=== PATIENT | female | born 1955 | race Caucasian/White ===

== ENCOUNTER 2020-02-03 16:32 | Emergency (ER) | payer BC ==
[2020-02-03 16:59] VITALS: BP 106/48; PULSE 79
[2020-02-03] MEDS ORDERED: Cefdinir 300 MG Cap PO ONE (17:58)
--- NOTE | 2020-02-03 18:04 | EDM.PDOC ---
ED HPI GENERAL MEDICAL PROBLEM - General Chief Complaint: Genitourinary Problem Stated Complaint: URINARY PROBLEMS/SHIVERS Time Seen by Provider: 02/03/20 16:43 Source of Information: Reports: Patient, RN Notes Reviewed History Limitations: Reports: No Limitations - History of Present Illness INITIAL COMMENTS - FREE TEXT/NARRATIVE: Patient is a 64-year-old female who presents to the ED for her urinary issues. Patient notes she has kind of a longstanding issues with her bladder. She was seen in a [place] ER last month, and was found to have blood in her urine, but no infection. She is to see a urologist on February 13 in [place], and also a environmental sampler in [place] on February 20 due to possible bladder or uterine prolapse. She states she has a constant urge to void, but this has worsened today, she states she is going to the bathroom about every 5 minutes. She is not complaining of any real dysuria. She states there is a lot of pressure in her lower abdomen. She also notes that on Tuesday her left foot and leg became more swollen than her right. She states this is not tender, and the swelling seems to have been better today. Her primary care provider is Elva Juarez. Patient notes she is also weaning off of her Cymbalta, and states that she should be done by February 16 for this, she states she used to be on 60 mg, and is down to 6 mg at this time. Patient denies any other sick-like symptoms, fever/chills, cough/shortness of breath, nausea/vomiting/diarrhea. - Related Data Allergies Allergy/AdvReac Type Severity Reaction Status Date / Time pantoprazole sodium Allergy Severe Itching Verified 02/03/20 16:53 [From Protonix] Penicillins Allergy Severe Hives Verified 02/03/20 16:53 [place] Allergy Severe Hives Uncoded 02/03/20 16:53 Home Meds: Home Meds Aspirin [Low Dose Aspirin EC] 81 mg PO DAILY 09/05/13 [History] Metoprolol Tartrate 50 mg PO DAILY 09/05/13 [History] Omeprazole [Prilosec] 40 mg PO BID 12/25/14 [History] DULoxetine [Cymbalta] 30 mg PO DAILY 11/06/18 [History] Spironolactone [Aldactone] 25 mg PO DAILY 11/06/18 [History] Ticagrelor [Brilinta] 90 mg PO BID 11/06/18 [History] Morphine [MS Contin] 30 mg PO BID 03/09/19 [History] traZODone HCl [Trazodone HCl] 50 mg PO BEDTIME 03/09/19 [History] Cefdinir [Omnicef] 300 mg PO BID 5 Days #10 cap 02/03/20 [Rx] Past Medical History HEENT History: Reports: Impaired Vision Other HEENT History: wears eyeglasses Cardiovascular History: Reports: Heart Valve Replacement, Hypertension, [place], Stents Gastrointestinal History: Reports: Chronic Diarrhea Other Gastrointestinal History: abdominal pain past year. ulcer Genitourinary History: Reports: Other (See Below) Other Genitourinary History: poss bladder/uterine prolapse, hematuria JIGMAKER History: Reports: , Other (See Below) Other JIGMAKER History: - Infectious Disease History Infectious Disease History: Reports: C-Difficile, Mumps - Past Surgical History Cardiovascular Surgical History: Reports: Carotid Stents, Coronary Artery Bypass Other Cardiovascular Surgeries/Procedures: Open Heart Surgery, x1 bypass;alve replacements GI Surgical History: Reports: Appendectomy, Cholecystectomy Female Surgical History: Reports: Section Other Musculoskeletal Surgeries/Procedures:: carpal tunnel, bilat Social & Family History - Tobacco Use Tobacco Use Status *Q: Current Every Day Tobacco User Years of Tobacco use: 40 Packs/Tins Daily: 0.1 - Caffeine Use Caffeine Use: Reports: Coffee - Recreational Drug Use Recreational Drug Use: No ED ROS GENERAL - Review of Systems Review Of Systems: Comprehensive ROS is negative, except as noted in HPI. ED EXAM, RENAL/ - Physical Exam Exam: See Below Exam Limited By: No Limitations General Appearance: Alert, WD/WN, No Apparent Distress Respiratory/Chest: No Respiratory Distress, Lungs Clear, Normal Breath Sounds, No Accessory Muscle Use, Chest Non-Tender Cardiovascular: Normal Peripheral Pulses, Regular Rate, Rhythm, No Murmur GI/Abdominal: Normal Bowel Sounds, Soft, Non-Tender, No Distention, No Mass Extremities: Normal Inspection, Normal Capillary Refill, Pedal Edema (slight to left foot.) Neurological: Alert, Oriented, Normal Cognition, No Motor/Sensory Deficits Psychiatric: Normal Affect, Normal Mood Skin Exam: Warm, Dry, Intact, Normal Color, No Rash Course - Vital Signs Last Recorded V/S: Last Vital Signs Temp 97.6 F 02/03/20 16:57 Pulse 79 02/03/20 16:57 Resp 20 02/03/20 16:57 BP 106/48 L 02/03/20 16:57 Pulse Ox 93 L 02/03/20 16:57 - Orders/Labs/Meds Labs: Laboratory Tests 02/03/20 Range/Units 17:00 Urine Color Yellow (Yellow) Urine Appearance Clear (Clear) Urine pH 6.0 (5.0-8.0) Ur Specific [place] > or = 1.030 (1.005-1.030) Urine Protein 1+ H (Negative) Urine Glucose (UA) Negative (Negative) Urine Ketones Negative (Negative) Urine Occult Blood 2+ H (Negative) Urine Nitrite Negative (Negative) Urine Bilirubin Negative (Negative) Urine Urobilinogen 0.2 (0.2-1.0) Ur Leukocyte Esterase Negative (Negative) Urine RBC 20-30 H (0-5) /hpf Urine WBC 0-5 (0-5) /hpf Ur Squamous Epith Cells 0-5 (0-5) /hpf Urine Bacteria Few (FEW) /hpf Urine Mucus Few (FEW) /hpf Meds: Medications Discontinued Medications Generic Name Dose Route Start Last Admin Trade Name Freq PRN Reason Stop Dose Admin Cefdinir 300 mg 02/03/20 17:58 Omnicef PO 02/03/20 17:59 ONETIME ONE - Re-Assessments/Exams Free Text/Narrative Re-Assessment/Exam: 02/03/20 18:05 Patient has provided a urine sample at time of triage, she has 20-30 RBCs in her urine, no nitrites, no leukocyte Estrace. 0-5 white blood cells. I was questioning urinary retention, but the nursing staff states that she is only retained 10 mils of urine within her bladder after voiding. Patient is up to the bathroom every 5 to 10 minutes. We will treat for hemorrhagic cystitis at this time, and have her follow-up with JIGMAKER and urology as previously scheduled. Departure - Departure Time of Disposition: 18:08 Disposition: Home, Self-Care 01 Condition: Good Clinical Impression: UTI symptoms - Discharge Information *PRESCRIPTION DRUG MONITORING PROGRAM REVIEWED*: No *COPY OF PRESCRIPTION DRUG MONITORING REPORT IN PATIENT JOSE ARMANDO: No Prescriptions: Cefdinir [Omnicef] 300 mg PO BID 5 Days #10 cap Instructions: Urinary Tract Infection, Adult, [id number] Referrals: Elva Juarez NP [Primary Care Provider] - Additional Instructions: You have been evaluated in the ED for your urinary symptoms. Your urinalysis was consistent with an acute urinary tract infection. Your urine was sent for culture, and you will be notified if you should need a change in your antibiotic. This may take up to 48 hours to result. You have been given a prescription for Omnicef (cefdinir), 300 mg 1 tablet 2 times a day for 5 days. This has been electronically sent to the [facility] pharmacy. Please increase your oral fluid intake and try to stay adequately hydrated. Regarding your leg swelling, recommend you elevate your leg as much as possible, and use Filiberto wraps to the area to help provide further compression and relief of swelling. None of the symptoms you are experiencing today are thought to be related to the weaning of your Cymbalta. Please return to the ED if your symptoms change or worsen. Sepsis Event Note (ED) - Evaluation Sepsis Screening Result: No Definite Risk - Focused Exam Vital Signs: Vital Signs Temp Pulse Resp BP Pulse Ox 02/03/20 16:57 97.6 F 79 20 106/48 L 93 L
== END 2020-02-03 18:30 | disposition home or self-care (01) ==
LOC: JD.ED 16:32
DX: R39.15 Urgency of urination (principal); I10 Essential (primary) hypertension; F17.210 Nicotine dependence, cigarettes, uncomplicated; I25.2 Old myocardial infarction; Z95.5 Presence of coronary angioplasty implant and graft; Z79.82 Long term (current) use of aspirin; Z79.899 Other long term (current) drug therapy; Z88.0 Allergy status to penicillin; Z88.1 Allergy status to other antibiotic agents; Z88.8 Allergy status to other drugs, medicaments and biological substances
CPT/HCPCS: 81001; 87086; 99283; A9270

== ENCOUNTER 2020-02-24 22:06 | Emergency (ER) | payer BC ==
[2020-02-24 22:28] VITALS: BP 126/65; PULSE 78
--- NOTE | 2020-02-24 22:36 | EDM.PDOC ---
<Shashi Fisher - Last Filed: 02/25/20 00:30> ED HPI GENERAL MEDICAL PROBLEM - General Chief Complaint: Lower Extremity Injury/Pain Stated Complaint: LT FOOT INJURY Time Seen by Provider: 02/24/20 22:09 - Related Data Allergies Allergy/AdvReac Type Severity Reaction Status Date / Time pantoprazole sodium Allergy Severe Itching Verified 02/03/20 16:53 [From Protonix] Penicillins Allergy Severe Hives Verified 02/03/20 16:53 [place] Allergy Severe Hives Uncoded 02/03/20 16:53 Home Meds: Home Meds Aspirin [Low Dose Aspirin EC] 81 mg PO DAILY 09/05/13 [History] Metoprolol Tartrate 50 mg PO DAILY 09/05/13 [History] Omeprazole [Prilosec] 40 mg PO BID 12/25/14 [History] DULoxetine [Cymbalta] 30 mg PO DAILY 11/06/18 [History] Spironolactone [Aldactone] 25 mg PO DAILY 11/06/18 [History] Ticagrelor [Brilinta] 90 mg PO BID 11/06/18 [History] Morphine [MS Contin] 15 mg PO BID 03/09/19 [History] traZODone HCl [Trazodone HCl] 50 mg PO BEDTIME 03/09/19 [History] Course - Re-Assessments/Exams Free Text/Narrative Re-Assessment/Exam: 02/25/20 00:31 Lower leg Doppler was not able to demonstrate a DVT. By history the patient's had a creatinine of 1.5 she has been seen by nephrology interestingly they stopped her Lasix continued the spironolactone 25 mg a day today the patient's potassium is elevated at 5.5 this is borderline. We will give 15 g of Kayexalate. Her creatinine is down to 1.2. The patient has multiple factors going on at this point in her social life her brother just and she is dealing with many issues of this. I have stressed the importance of the patient follow-up in the clinic on Tuesday or Tuesday get her potassium rechecked and she agrees to do this. Departure - Departure Time of Disposition: 00:33 Disposition: Home, Self-Care 01 Clinical Impression: Left leg swelling, Drug-induced hyperkalemia - Discharge Information Instructions: Hyperkalemia, [id number] Referrals: Elva Jaurez NP [Primary Care Provider] - Forms: ED Department Discharge Additional Instructions: You were seen in the emergency department today for edema/swelling to your left leg over the course of last 3 weeks. Venous Doppler ultrasound was completed in the ER and was negative for any blood clots. Blood work and urinalysis was also completed. Urinalysis showed some blood in your urine but there was no signs of infection. Recommend that you purchase thigh-high support hose for the left leg. Follow-up with your primary care provider at the next available visit. Return to ER for any new or worsening symptoms of concern. Follow-up with your regular healthcare provider on Tuesday to have your potassium rechecked. <Chaya Dinh - Last Filed: 02/26/20 22:29> ED HPI GENERAL MEDICAL PROBLEM - General Source of Information: Reports: Patient, RN Notes Reviewed History Limitations: Reports: No Limitations - History of Present Illness INITIAL COMMENTS - FREE TEXT/NARRATIVE: Patient is a 64-year-old female presenting to the emergency department with complaints of swelling to her left foot and up her left leg for approximately the last 3 weeks. She was seen in this emergency department on February 02 for urinary tract symptoms. States since that time she has been wrapping her foot which initially helped but is no longer helping. She verbalizes that the edema is present throughout her entire left leg and that her left labia is also mildly swollen. She denies any history of blood clots, chest pain, or shortness of breath. She is had no known injury to the leg. She has an appointment scheduled with her primary care provider tomorrow, however she will not be able to make it as her brother recently and per services tomorrow. Patient also verbalizes concerns with regard to her kidney function. She states after her urinary tract infection that was diagnosed on 02 February, she had follow-up in the clinic. Urinalysis had showed that her infection had cleared but she still had blood in her urine. She saw a roll sheeting cutter at [facility] in [place] and was told that her creatinine was elevated. She was supposed to have a urogram completed yesterday, however she did not attend that appointment also due to the of her brother. She is wondering if she can have her blood work and urine rechecked today. Left Feet Pain Score (Numeric/FACES): 6 Past Medical History HEENT History: Reports: Impaired Vision Other HEENT History: wears eyeglasses Cardiovascular History: Reports: Heart Valve Replacement, Hypertension, [place], Stents Respiratory History: Reports: None Gastrointestinal History: Reports: Chronic Diarrhea Other Gastrointestinal History: abdominal pain past year. ulcer Genitourinary History: Reports: Other (See Below) Other Genitourinary History: poss bladder/uterine prolapse, hematuria FUDGER History: Reports: , Other (See Below) Other FUDGER History: Neurological History: Reports: None Psychiatric History: Reports: None Endocrine/Metabolic History: Reports: None Hematologic History: Reports: Anticoagulation Therapy Immunologic History: Reports: None Oncologic (Cancer) History: Reports: None Dermatologic History: Reports: None - Infectious Disease History Infectious Disease History: Reports: C-Difficile, Mumps - Past Surgical History Cardiovascular Surgical History: Reports: Carotid Stents, Coronary Artery Bypass Other Cardiovascular Surgeries/Procedures: Open Heart Surgery, x1 bypass;alve replacements GI Surgical History: Reports: Appendectomy, Cholecystectomy Female Surgical History: Reports: Section Other Musculoskeletal Surgeries/Procedures:: carpal tunnel, bilat Social & Family History - Tobacco Use Tobacco Use Status *Q: Current Every Day Tobacco User Years of Tobacco use: 40 Packs/Tins Daily: 0.2 - Caffeine Use Caffeine Use: Reports: Coffee - Recreational Drug Use Recreational Drug Use: No Review of Systems - Review of Systems Review Of Systems: See Below Constitutional: Reports: No Symptoms Eyes: Reports: No Symptoms Ears: Reports: No Symptoms Nose: Reports: No Symptoms Mouth/Throat: Reports: No Symptoms Respiratory: Reports: No Symptoms Cardiovascular: Reports: Edema (Edema to the left leg.) GI/Abdominal: Reports: No Symptoms Genitourinary: Reports: Other (Left labial edema) Musculoskeletal: Reports: No Symptoms Skin: Reports: No Symptoms Neurological: Reports: No Symptoms Psychiatric: Reports: No Symptoms ED EXAM, GENERAL - Physical Exam Exam: See Below Exam Limited By: No Limitations General Appearance: Alert, WD/WN, No Apparent Distress Respiratory/Chest: No Respiratory Distress, Lungs Clear, Normal Breath Sounds, No Accessory Muscle Use, Chest Non-Tender Cardiovascular: Normal Peripheral Pulses, Regular Rate, Rhythm, No Gallop, No JVD, No Murmur, No Rub, Other (2+ pitting edema to left leg. No redness or open areas. ) Peripheral Pulses: 2+: Dorsalis Pedis (L) Neurological: Alert, Oriented, CN II-XII Intact, Normal Cognition, Normal Gait, Normal Reflexes, No Motor/Sensory Deficits Psychiatric: Normal Affect, Normal Mood Skin Exam: Warm, Dry, Intact, Normal Color, No Rash Course - Vital Signs Last Recorded V/S: Last Vital Signs Temp 97.5 F 02/24/20 22:26 Pulse 78 02/24/20 22:26 Resp 20 02/24/20 22:26 BP 126/65 02/24/20 22:26 Pulse Ox 92 L 02/24/20 22:26 - Orders/Labs/Meds Labs: Laboratory Tests 02/24/20 02/24/20 02/24/20 Range/Units 22:40 22:40 22:40 WBC 10.15 H (3.98-10.04) K/mm3 RBC 3.49 L (3.98-5.22) M/mm3 Hgb 9.9 L (11.2-15.7) gm/dl Hct 32.2 L (34.1-44.9) % MCV 92.3 D (79.4-94.8) fl MCH 28.4 (25.6-32.2) pg MCHC 30.7 L (32.2-35.5) g/dl RDW Std Deviation 49.9 H (36.4-46.3) fL Plt Count 360 D (182-369) K/mm3 MPV 8.2 L (9.4-12.3) fl Neut % (Auto) 75.7 H (34.0-71.1) % Lymph % (Auto) 10.9 L (19.3-51.7) % [place] % (Auto) 11.2 (4.7-12.5) % Eos % (Auto) 1.2 (0.7-5.8) Baso % (Auto) 0.8 (0.1-1.2) % Neut # (Auto) 7.68 H (1.56-6.13) K/mm3 Lymph # (Auto) 1.11 L (1.18-3.74) K/mm3 [place] # (Auto) 1.14 H (0.24-0.36) K/mm3 Eos # (Auto) 0.12 (0.04-0.36) K/mm3 Baso # (Auto) 0.08 (0.01-0.08) K/mm3 Manual Slide Review Abnormal smear Sodium 130 L D (136-145) mEq/L Potassium 5.5 H (3.5-5.1) mEq/L Chloride 96 L D (98-107) mEq/L Carbon Dioxide 27 (21-32) mEq/L Anion Gap 12.5 (5-15) BUN 16 D (7-18) mg/dL Creatinine 1.2 H D (0.55-1.02) mg/dL Est Cr Clr Drug Dosing 34.47 mL/min Estimated GFR (MDRD) 45 (>60) mL/min BUN/Creatinine Ratio 13.3 L (14-18) Glucose 85 (80-115) mg/dL Calcium 9.1 (8.5-10.1) mg/dL Total Bilirubin 0.2 (0.2-1.0) mg/dL AST 20 (15-37) U/L ALT 18 (14-59) U/L Alkaline Phosphatase 82 (46-116) U/L C-Reactive Protein 1.4 H* (<1.0) mg/dL Total Protein 7.6 (6.4-8.2) g/dl Albumin 3.8 (3.4-5.0) g/dl Globulin 3.8 gm/dL Albumin/Globulin Ratio 1.0 (1-2) Urine Color Yellow (Yellow) Urine Appearance Clear (Clear) Urine pH 5.5 (5.0-8.0) Ur Specific [place] 1.020 (1.005-1.030) Urine Protein 1+ H (Negative) Urine Glucose (UA) Negative (Negative) Urine Ketones Negative (Negative) Urine Occult Blood Trace-intact H (Negative) Urine Nitrite Negative (Negative) Urine Bilirubin Negative (Negative) Urine Urobilinogen 0.2 (0.2-1.0) Ur Leukocyte Esterase Negative (Negative) U Hyaline Cast (Auto) 5-10 H (0-5) /lpf Urine RBC 0-5 (0-5) /hpf Urine WBC 0-5 (0-5) /hpf Ur Squamous Epith Cells 0-5 (0-5) /hpf Urine Bacteria Few (FEW) /hpf Urine Mucus Rare (FEW) /hpf Meds: Medications Discontinued Medications Generic Name Dose Route Start Last Admin Trade Name [place] PRN Reason Stop Dose Admin Sodium Polystyrene Sulfonate 15 gm 02/25/20 00:29 02/25/20 00:44 Kayexalate PO 02/25/20 00:30 15 gm ONETIME ONE Administration - Re-Assessments/Exams Free Text/Narrative Re-Assessment/Exam: Patient is a 64-year-old female presenting to the emergency department with complaints of swelling to her left leg. Is been present for at least 3 weeks. Denies any significant pain but states that the leg feels tight and she occasionally gets some numbness and tingling in it. She is also requesting to have her blood work and urinalysis are rechecked. Denies any chest pain or shortness of breath. Have ordered CBC, CMP,'s CRP, urinalysis, and a venous Doppler ultrasound of her left extremity. 02/24/20 23:[address] Fisher. He assume care and disposition of the patient. Sepsis Event Note (ED) - Evaluation Sepsis Screening Result: No Definite Risk
[2020-02-25] MEDS ORDERED: Sodium Polystyrene Sulfonate 15 GM/60 ML Susp 60 ML Bot PO ONE (00:29)
--- NOTE | 2020-02-25 08:58 | US ---
PROCEDURE INFORMATION: Exam: US Duplex Left Lower Extremity Veins, Limited Exam date and time: 02/24/2020 11:03 PM Age: 64 years old Clinical indication: Pain; Leg, lower; Left TECHNIQUE: Imaging protocol: Real-time Duplex ultrasound of the Left Lower Extremity with 2-D rainey scale, color Doppler flow and spectral waveform analysis with image documentation. Limited exam focused on the left lower extremity veins. COMPARISON: No relevant prior studies available. FINDINGS: Left deep veins: Unremarkable. The common femoral, femoral, proximal profunda femoral and popliteal veins are patent without thrombus. Normal Doppler waveforms. Normal compressibility and/or augmentation response. Left superficial veins: Unremarkable. Saphenofemoral junction is patent without thrombus. Soft tissues: Mild subcutaneous edema. IMPRESSION: Negative. No deep venous thrombosis is seen. Thank you for allowing us to participate in the care of your patient. Dictated and Authenticated by: Joel Fisher MD 02/25/2020 12:42 AM Central Time ([place] & [place]) JOSEPH
== END 2020-02-25 00:54 | disposition home or self-care (01) ==
LOC: JD.ED 22:06
DX: M79.89 Other specified soft tissue disorders (principal); E87.5 Hyperkalemia; I10 Essential (primary) hypertension; I25.2 Old myocardial infarction; F17.210 Nicotine dependence, cigarettes, uncomplicated; Z79.82 Long term (current) use of aspirin; Z79.899 Other long term (current) drug therapy; Z88.0 Allergy status to penicillin; Z88.8 Allergy status to other drugs, medicaments and biological substances; Z95.5 Presence of coronary angioplasty implant and graft
CPT/HCPCS: 36415; 80053; 81001; 85025; 86140; 99284; A9270; 93971-26-LT; 93971-LT; 99283

== ENCOUNTER 2020-06-15 02:35 | Emergency (ER) | payer BC, OTHER ==
[2020-06-15 02:45] VITALS: BP 134/88; PULSE 99
--- NOTE | 2020-06-15 03:08 | EDM.PDOC ---
ED HPI GENERAL MEDICAL PROBLEM - General Chief Complaint: Chest Pain Stated Complaint: POSSIBLE HEART ATTACK Time Seen by Provider: 06/15/20 02:52 Source of Information: Reports: Patient, Family History Limitations: Reports: No Limitations - History of Present Illness INITIAL COMMENTS - FREE TEXT/NARRATIVE: This is a 65-year-old female. She has an extensive cardiac history. This includes aortic and mitral valve replacement in 2013 with 1 CABG. She apparently had to have the valve replaced in 2014. Then she had a STEMI in September 2018 with a single stent. He takes a baby aspirin a day but other than that she is on no blood thinners. Recent echocardiogram that showed an ejection fraction of 20 to 25%. Today she was having episodes of shortness of breath and chest pressure not chest pain in a seem to be in the center of her chest not into her jaw or down her arm. She also states that she has gained 10 pounds over the last several months and she is Bumex 2 mg a day. They also noted today that her pulse ox would fluctuate from 93-94% down to 83% when she would get short of breath. She is on no oxygen at home. She continues to smoke about 5 cigarettes a day. Here in the ER on 2 L of O2 by nasal cannula her pulse ox is 96%. Her blood pressure has been fluctuating today as well but in the ER is 134/88. She says when she was having the pressure and the shortness of breath and feeling kind of bad she also had some dizziness and felt like it was hard to walk. Presently she has no pressure in her chest and she says she is feeling much better. Recent colds or coughs. Her cardiac doctor is Dr. Garcia from [facility]. Middle Chest Pain Score (Numeric/FACES): 7 - Related Data Allergies Allergy/AdvReac Type Severity Reaction Status Date / Time pantoprazole sodium Allergy Severe Itching Verified 06/15/20 02:45 [From Protonix] Penicillins Allergy Severe Hives Verified 06/15/20 02:45 [place] Allergy Severe Hives Uncoded 06/15/20 02:58 Home Meds: Home Meds Metoprolol Tartrate 50 mg PO DAILY 09/05/13 [History] Omeprazole [Prilosec] 40 mg PO BID 12/25/14 [History] Spironolactone [Aldactone] 12.5 mg PO DAILY 11/06/18 [History] Morphine [MS Contin] 15 mg PO BID 03/09/19 [History] traZODone HCl [Trazodone HCl] 100 mg PO BEDTIME 03/09/19 [History] Bumetanide [Bumex] 1 mg PO BID 06/15/20 [History] Cholestyramine (With Sugar) [Questran Powder] 4 gm PO TID 06/15/20 [History] Diphenoxylate HCl/Atropine [Lomotil] 2.5 mg PO DAILY PRN 06/15/20 [History] Ezetimibe [Zetia] 10 mg PO DAILY 06/15/20 [History] Hydrocodone/Acetaminophen [Hydrocodone-Acetamin 10-325 mg] 1 tab PO QID PRN 06/15/20 [History] Past Medical History HEENT History: Reports: Impaired Vision Other HEENT History: wears eyeglasses Cardiovascular History: Reports: Heart Valve Replacement, Hypertension, MA, Stents Respiratory History: Reports: None Gastrointestinal History: Reports: Chronic Diarrhea Other Gastrointestinal History: abdominal pain past year. ulcer Genitourinary History: Reports: Other (See Below) Other Genitourinary History: poss bladder/uterine prolapse, hematuria TUBE DEPATCHER History: Reports: , Other (See Below) Other TUBE DEPATCHER History: Neurological History: Reports: None Psychiatric History: Reports: None Endocrine/Metabolic History: Reports: None Hematologic History: Reports: Anticoagulation Therapy Immunologic History: Reports: None Oncologic (Cancer) History: Reports: None Dermatologic History: Reports: None - Infectious Disease History Infectious Disease History: Reports: C-Difficile, Mumps - Past Surgical History Cardiovascular Surgical History: Reports: Carotid Stents, Coronary Artery Bypass Other Cardiovascular Surgeries/Procedures: Open Heart Surgery, x1 bypass;alve replacements GI Surgical History: Reports: Appendectomy, Cholecystectomy Female Surgical History: Reports: Section Other Female Surgeries/Procedures: x1 Other Musculoskeletal Surgeries/Procedures:: carpal tunnel, bilat Social & Family History - Tobacco Use Tobacco Use Status *Q: Current Every Day Tobacco User Years of Tobacco use: 40 Packs/Tins Daily: 0.5 - Caffeine Use Caffeine Use: Reports: Coffee - Recreational Drug Use Recreational Drug Use: No ED ROS GENERAL - Review of Systems Review Of Systems: See Below Constitutional: Reports: Fatigue. Denies: Fever, Chills HEENT: Reports: No Symptoms Respiratory: Reports: Shortness of Breath. Denies: Wheezing, Cough Cardiovascular: Reports: Chest Pain, Dyspnea on Exertion. Denies: Edema Endocrine: Reports: No Symptoms GI/Abdominal: Denies: Abdominal Pain, Diarrhea, Nausea, Vomiting : Reports: No Symptoms Musculoskeletal: Reports: Other (Generalized deconditioning and weakness) Skin: Reports: No Symptoms Neurological: Reports: No Symptoms Psychiatric: Reports: No Symptoms ED EXAM, GENERAL - Physical Exam Exam: See Below Exam Limited By: No Limitations General Appearance: Alert, WD/WN, No Apparent Distress Eye Exam: Bilateral Eye: Normal Inspection Ears: Normal External Exam Nose: Normal Inspection Throat/Mouth: Normal Voice, No Airway Compromise Head: Normocephalic Neck: Supple. No: Carotid Bruit Respiratory/Chest: No Respiratory Distress, Lungs Clear, Normal Breath Sounds Cardiovascular: Regular Rate, Rhythm, Diastolic Murmur, Systolic Murmur, Other (You can hear hear the click of the artificial valves, and hear a systolic and slight diastolic murmur) GI/Abdominal: Soft, Non-Tender Back Exam: Decreased Range of Motion Extremities: Normal Inspection, Normal Range of Motion, No Pedal Edema Neurological: Alert, Oriented Psychiatric: Normal Affect, Normal Mood Skin Exam: Warm, Dry #1 Interpretation EKG Date: 06/15/20 Time: 02:40 EKG Interpretation Comments: EKG shows a normal sinus rhythm rate of 99. There is a left bundle branch block noted so I cannot tell if there is ST or T wave changes. It looks fairly the same as an old EKG from 02/2019. Course - Vital Signs Last Recorded V/S: Last Vital Signs Temp 98.4 F 06/15/20 02:41 Pulse 99 06/15/20 02:41 Resp 16 06/15/20 02:41 BP 134/88 06/15/20 02:41 Pulse Ox 88 L 06/15/20 02:41 - Orders/Labs/Meds Orders: Active Orders 24 hr Category Date Time Status EKG Documentation Completion [RC] ASDIRECTED Care 06/15/20 02:36 Active Chest 1V Frontal [CR] Stat Exams 06/15/20 02:49 Taken EKG 12 Lead [EK] Stat Ther 06/15/20 02:36 Ordered Labs: Laboratory Tests 06/15/20 06/15/20 06/15/20 Range/Units 02:45 02:45 02:45 WBC 8.13 (3.98-10.04) K/mm3 RBC 4.26 (3.98-5.22) M/mm3 Hgb 10.0 L (11.2-15.7) gm/dl Hct 34.2 (34.1-44.9) % MCV 80.3 D (79.4-94.8) fl MCH 23.5 L (25.6-32.2) pg MCHC 29.2 L (32.2-35.5) g/dl RDW Std Deviation 50.2 H (36.4-46.3) fL Plt Count 479 H D (182-369) K/mm3 MPV 8.5 L (9.4-12.3) fl Neut % (Auto) 73.6 H (34.0-71.1) % Lymph % (Auto) 11.2 L (19.3-51.7) % Ector % (Auto) 11.8 (4.7-12.5) % Eos % (Auto) 2.2 (0.7-5.8) Baso % (Auto) 1.1 (0.1-1.2) % Neut # (Auto) 5.98 (1.56-6.13) K/mm3 Lymph # (Auto) 0.91 L (1.18-3.74) K/mm3 Ector # (Auto) 0.96 H (0.24-0.36) K/mm3 Eos # (Auto) 0.18 (0.04-0.36) K/mm3 Baso # (Auto) 0.09 H (0.01-0.08) K/mm3 Manual Slide Review Abnormal smear Sodium 136 (136-145) mEq/L Potassium 3.9 D (3.5-5.1) mEq/L Chloride 94 L (98-107) mEq/L Carbon Dioxide 31 (21-32) mEq/L Anion Gap 14.9 (5-15) BUN 14 (7-18) mg/dL Creatinine 1.2 H (0.55-1.02) mg/dL Est Cr Clr Drug Dosing 34.02 mL/min Estimated GFR (MDRD) 45 (>60) mL/min BUN/Creatinine Ratio 11.7 L (14-18) Glucose 122 H (80-115) mg/dL Calcium 9.7 (8.5-10.1) mg/dL Magnesium 1.9 (1.8-2.4) mg/dl Total Bilirubin 0.4 (0.2-1.0) mg/dL AST 22 (15-37) U/L ALT 21 (14-59) U/L Alkaline Phosphatase 127 H (46-116) U/L Troponin I 0.057 H* (0.00-0.056) ng/mL NT-Pro-B Natriuret Pep 7176 H (0-125) pg/mL Total Protein 8.2 (6.4-8.2) g/dl Albumin 3.7 (3.4-5.0) g/dl Globulin 4.5 gm/dL Albumin/Globulin Ratio 0.8 L (1-2) 06/15/20 Range/Units 05:00 WBC (3.98-10.04) K/mm3 RBC (3.98-5.22) M/mm3 Hgb (11.2-15.7) gm/dl Hct (34.1-44.9) % MCV (79.4-94.8) fl MCH (25.6-32.2) pg MCHC (32.2-35.5) g/dl RDW Std Deviation (36.4-46.3) fL Plt Count (182-369) K/mm3 MPV (9.4-12.3) fl Neut % (Auto) (34.0-71.1) % Lymph % (Auto) (19.3-51.7) % Ector % (Auto) (4.7-12.5) % Eos % (Auto) (0.7-5.8) Baso % (Auto) (0.1-1.2) % Neut # (Auto) (1.56-6.13) K/mm3 Lymph # (Auto) (1.18-3.74) K/mm3 Ector # (Auto) (0.24-0.36) K/mm3 Eos # (Auto) (0.04-0.36) K/mm3 Baso # (Auto) (0.01-0.08) K/mm3 Manual Slide Review Sodium (136-145) mEq/L Potassium (3.5-5.1) mEq/L Chloride (98-107) mEq/L Carbon Dioxide (21-32) mEq/L Anion Gap (5-15) BUN (7-18) mg/dL Creatinine (0.55-1.02) mg/dL Est Cr Clr Drug Dosing mL/min Estimated GFR (MDRD) (>60) mL/min BUN/Creatinine Ratio (14-18) Glucose (80-115) mg/dL Calcium (8.5-10.1) mg/dL Magnesium (1.8-2.4) mg/dl Total Bilirubin (0.2-1.0) mg/dL AST (15-37) U/L ALT (14-59) U/L Alkaline Phosphatase (46-116) U/L Troponin I 0.035 (0.00-0.056) ng/mL NT-Pro-B Natriuret Pep (0-125) pg/mL Total Protein (6.4-8.2) g/dl Albumin (3.4-5.0) g/dl Globulin gm/dL Albumin/Globulin Ratio (1-2) - Radiology Interpretation Free Text/Narrative:: Chest x-ray was suggest maybe a slight amount of fluid more so noted in the right lower lung with some blunting of the costophrenic angle - Re-Assessments/Exams Free Text/Narrative Re-Assessment/Exam: 06/15/20 04:03 02 the patient as well as to the about the fluid in the lungs and the anemia of hemoglobin of 10 slightly elevated troponin. Her history of heart problems and surgery makes her prone to have cardiac stress with very little provocation. We are going to repeat the troponin at a 2-hour interval and if it continues to rise we will consider admission. 06/15/20 06:06 Second troponin is absolutely normal at 0.035. I spoke to her about increasing her Bumex to 3 times a day to get the fluid out of her lungs but not to do this more than about 5 days in a row. If she still seems to be low on oxygen at home she might have to go on oxygen at home. Call her prestidigitator on Tuesday for recheck in the meantime she says she will behave herself. Departure - Departure Time of Disposition: 06:07 Disposition: Home, Self-Care 01 Condition: Fair Clinical Impression: Hypoxemia, Chest pressure, Shortness of breath Congestive heart failure Qualifiers: Heart failure type: other Qualified Code(s): I50.9 - Heart failure, unspecified Coronary artery disease Qualifiers: Coronary Disease-Associated Artery/Lesion type: unspecified vessel or lesion type [place] vs. transplanted heart: enterprise heart Associated angina: with stable angina Qualified Code(s): I25.118 - Atherosclerotic heart disease of enterprise coronary artery with other forms of angina pectoris Referrals: Elva Juarez NP [Primary Care Provider] - Forms: ED Department Discharge Additional Instructions: Increase your Bumex to 1 mg 3 times a day but no more than 5 days in a row, if you still have shortness of breath you might need to be on oxygen at home, call your prestidigitator on Tuesday and let them know you were here and that your cardiac enzymes came back good but that you had some mild fluid in your lungs and your oxygen initially was slightly low, if things worsen dramatically return to the ER immediately. Sepsis Event Note (ED) - Evaluation Sepsis Screening Result: No Definite Risk - Focused Exam Vital Signs: Vital Signs Temp Pulse Resp BP Pulse Ox 06/15/20 02:41 98.4 F 99 16 134/88 88 L - My Orders Last 24 Hours: My Active Orders 06/15/20 02:36 EKG Documentation Completion [RC] ASDIRECTED EKG 12 Lead [EK] Stat 06/15/20 02:49 Chest 1V Frontal [CR] Stat - Assessment/Plan Last 24 Hours: My Active Orders 06/15/20 02:36 EKG Documentation Completion [RC] ASDIRECTED EKG 12 Lead [EK] Stat 06/15/20 02:49 Chest 1V Frontal [CR] Stat
--- NOTE | 2020-06-15 11:28 | CR ---
Chest: Portable view of the chest was obtained. Comparison: Prior chest x-ray of 03/09/19. Heart size and mediastinum are normal for portable technique. Prior sternotomy is noted presumably for prior CABG. Questionable blunting of the right lateral costophrenic angle is seen possibly due to minimal pleural effusion. Pulmonary vessels may be slightly congested. Impression: 1. Findings as described above suspicious for mild CHF. Diagnostic code #3
== END 2020-06-15 06:19 | disposition home or self-care (01) ==
LOC: JD.ED 02:35
DX: I25.118 Atherosclerotic heart disease of native coronary artery with other forms of angina pectoris (principal); I11.0 Hypertensive heart disease with heart failure; I50.9 Heart failure, unspecified; R09.02 Hypoxemia; I25.2 Old myocardial infarction; Z79.899 Other long term (current) drug therapy; Z88.8 Allergy status to other drugs, medicaments and biological substances; Z88.0 Allergy status to penicillin; Z88.1 Allergy status to other antibiotic agents
CPT/HCPCS: 36415; 71045; 71045-26; 80053; 83735; 83880; 84484; 85025; 93005; 93010; 99285; 99285-25